=== PATIENT | female | born 1960 | race Two or more races ===

== ENCOUNTER → 2018-03-22 | Outpatient (CLI) | payer BC ==
[~2018-03-22] MED LIST: FLUT16SP2 NS
--- NOTE | 2018-03-22 14:34 | RAD ---
Ultrasound-guided left thyroid biopsy, 03/22/2018: History: Suspicious thyroid nodule An outside study demonstrated a dominant solid nodule in the left lobe of the thyroid gland. Under local anesthesia, aseptic conditions and sonographic guidance a 25-gauge needle was passed into this nodule via an anteromedial approach. 4 separate aspirates were obtained from the nodule in this manner and sent to pathology for evaluation. Hemostasis was then obtained. The patient tolerated the procedure well and left the department in good condition. The pathology results are pending.
--- NOTE | 2018-03-25 13:09 | PATHOLOGY ---
Note [facility] Accession Number: [id number] TESTS RESULT FLAG UNITS REF RANGE LAB Clinician Provided Cytology Information No. of containers..01 Other (Miscellaneous) Source: THYROID Clinician ICD10: E04.1 DIAGNOSIS: LT THYROID INCONCLUSIVE. B[place]ES[place] CATEGORY III. FOLLICULAR LESION OF UNDETERMINED SIGNIFICANCE. SPECIMEN CONSISTS OF ABUNDANT FOLLICULAR CELLS WITH HURTHLE CELL CHANGES AND WITH SCANT COLLOID. THE DIFFERENTIAL DIAGNOSIS INCLUDES CELLULAR HURTHLE SANDRO ADENOMATOID NODULE AND HURTHLE CELL FOLLICULAR NEOPLASM. THIS INTERPRETATION INCLUDES EVALUATION OF A CELL BLOCK. COMMENT; THIS CASE IS ALSO REVIEWED BY DR. GUILLERMO DAMON. Pathologist ICD10: R89.6 Signed out by: Anthony Cadet MD, Pathologist NPI- [id number] Performed by: Rylan Turner, Bus System Operator ([facility]) Gross description: 01 30ML, RED, CLOUDY /LCS FLAG LEGEND: L-Low Normal,H-High Normal,LL-Alert Low,HH-Alert High <-Panic Low,>-Panic High,A-Abnormal,AA-Critical Abnormal Performed at: [facility] [address] [place] [address] Nakul Merino MD, 02 AMADO [facility] [address] [id number] Ger Santos MD, Specimen Comment: A courtesy copy of this report has been sent to Specimen Comment: [phone]. Specimen Comment: Report sent to Specimen Comment: A duplicate report has been generated due to demographic updates. Performed at: [facility] [id number] [facility] [address], [place] [id number] MD Nakul Merino MD Phone: [phone]
== END | disposition home or self-care (01) ==
LOC: US 12:50
PROVIDERS: ATTEND Surgery
DX: E04.1 Nontoxic single thyroid nodule (principal)
CPT/HCPCS: 10022; 76942; 88173; 88305

== ENCOUNTER 2019-05-10 05:56 | Observation (INO) | payer BC ==
[~2019-05-10] VITALS: Ht 157.5 cm; Wt 76.0 kg
[2019-05-10] VITALS (7 sets, daily range): BP systolic 31–137; BP diastolic 64–77
[2019-05-10] MEDS ORDERED: LINZESS145 MCG PO ×2 (06:33→13:43)
[2019-05-10] MEDS ORDERED: PANT40TA77 PO (06:33)
[2019-05-10] MEDS ORDERED: LIDOCAINE 2% PF 5 ML VIAL. ONE (06:52)
[2019-05-10] MEDS ORDERED: DEXAMETHASONE SOD PHOS 20 MG/5 ML VIAL. ONE (06:52)
[2019-05-10] MEDS ORDERED: PROPOFOL 20 ML IV ONE (06:52)
[2019-05-10] MEDS ORDERED: ONDANSETRON PF 4 MG/2 ML VIAL. ONE (06:53)
[2019-05-10] MEDS ORDERED: SUCCINYLCHOLINE 200 MG/10 ML VIAL. ONE (06:54)
[2019-05-10] MEDS ORDERED: IV RINGERS,LACTATED 1000ML 1,000 ML IV SCH (07:00)
[2019-05-10] MEDS ORDERED: ONDANSETRON PF 4 MG/2 ML VIAL. IV PRN ×2 (07:00→10:15)
[2019-05-10] MEDS ORDERED: fentaNYL PF VIAL 100 MCG/2 ML VIAL IV PRN ×2 (07:00)
[2019-05-10] MEDS ORDERED: ceFAZolin 2GM PREMIX 2 GM/50 ML BAG IV ONE (07:00)
[2019-05-10] MEDS ORDERED: PROCHLORPERAZINE 10 MG/2 ML VIAL. IV PRN (07:00)
[2019-05-10] MEDS ORDERED: MIDAZOLAM HCL/PF 2 MG/2 ML VIAL. ONE (07:12)
[2019-05-10] MEDS ORDERED: fentaNYL PF VIAL 100 MCG/2 ML VIAL ONE (07:13)
[2019-05-10] MEDS ORDERED: REMIFENTANIL 1 MG VIAL. IV ONE (07:22)
[2019-05-10] MEDS ORDERED: PROPOFOL 100 ML IV ONE (07:34)
[2019-05-10] MEDS ORDERED: ePHEDrine PF IN SALINE 50 MG/10 ML SYRINGE. IV ONE ×2 (07:55→08:56)
[2019-05-10] MEDS ORDERED: SEVOFLURANE > 120 MINUTES. IH ONE (08:47)
[2019-05-10] MEDS ORDERED: IV 1/2 NORMAL SALINE 1,000 ML IV SCH (10:10)
[2019-05-10] MEDS ORDERED: IV NORMAL SALINE 1000ML BAG 1,000 ML IV SCH (10:10)
--- NOTE | 2019-05-10 10:10 | PDOC4 ---
Operative Note Operative Note Operative Note: Preoperative Diagnosis: Left thyroid nodule Postoperative Diagnosis: Same Procedure: Left hemithyroidectomy Surgeon: Micah [employer] Process Workers: Dr. Rowe Anesthesia: Gen. EBL: 25 mL Specimen: Left thyroid to pathology Drains: None Complications: None Indication: The patient is a 58 year old female who presented with a left thyroid nodule. Prior testing seemed to suggest a probable benign nodule. However with surveillance the nodule has increased in size. Based on this the patient strongly prefers a thyroidectomy versus continued surveillance and testing. The plan is for left hemithyroidectomy with the potential for a total pending pathology evaluation. The risks of surgery were discussed with the patient which include bleeding, infection, recurrent laryngeal nerve injury, hypoparathyroidism, pain, voice changes, anesthetic risk, potential need for additional surgery or procedure. She understands and would like to proceed. Description: The patient was taken to the operating room and placed supine on the operating table. Gen. anesthesia was performed. The Nims device was assembled. The anterior neck was prepped with ChloraPrep and draped in a standard surgical manner. The patient had a prior left neck scar from an anterior cervical procedure. We made an elliptical incision around the prior scar and extended it to the right side. Cautery dissection was carried down through the platysma. Subplatysmal flaps were developed superiorly and inferiorly. The strap muscle fascia was divided in the midline and we directed our attention to the left thyroid. In the midportion of the thyroid was the nodule which was readily palpated. We began with mobilization of the superior pole. The blood vessels were dissected free, ligated with 2-0 Vicryl, and divided. We then began mobilizing the lateral aspect of the thyroid, and the Harmonic scalpel assisted with this dissection. In a similar manner the inferior pole vessels were dissected free, ligated with 2-0 Vicryl and divided. The lobe was fairly small and seemed to be comprised of primarily the nodule. We were able to mobilize the lobe toward the midline and any smaller blood vessels were ligated with 3-0 Vicryl. With the Harmonic scalpel the isthmus was divided off the right lobe and the remaining tracheal attachments were mobilized The left thyroid lobe was then sent to pathology. Pathologic evaluation showed no clear evidence of papillary carcinoma. Hemostasis was good and no other gross abnormalities were seen. The strap muscle fascia was approximated with 3-0 Vicryl. The platysma was also closed with 3-0 Vicryl. Skin was approximated with 4-0 Monocryl. Steri-Strips and a sterile dressing were applied. The patient tolerated the procedure well and was sent to the recovery room in stable condition. At the end of the case all counts were correct. ZOE PONCE MD May 10, 2019 10:10
[2019-05-10] MEDS ORDERED: NALOXONE 0.4 MG/ML VIAL. IV PRN (10:15)
[2019-05-10] MEDS ORDERED: oxyCODONE/APAP 5/325 1 TAB TABLET PO PRN ×2 (10:15)
[2019-05-10] MEDS ORDERED: fentaNYL PF VIAL 100 MCG/2 ML VIAL IVP PRN (10:15)
[2019-05-10] MEDS ORDERED: 0.9 % SODIUM CHLORIDE 10 ML DISP.SYRIN. IV PRN (10:15)
[2019-05-10] MEDS ORDERED: PHENOL ORAL SPRAY 177ML BOTTLE. PO PRN (11:30)
[2019-05-10] MEDS ORDERED: FLU VAX QS 2019-20 (36MOS+)/PF 0.5 ML SYRINGE. VAX IM ONE (11:30)
[2019-05-10] MEDS ORDERED: [UNRECOGNIZED DRUG - REMARK] (13:42)
[2019-05-10] MEDS ORDERED: PANT20TA2 PO (13:43)
--- NOTE | 2019-05-10 14:26 | NUR ---
Patient accompanied by SCALE MANAGER walking for discharge home.
--- NOTE | 2019-05-12 09:07 | PATHOLOGY ---
[facility] Accession Number: [id number] . 01 Material submitted: . thyroid gland - LEFT THYROID,FS. Modifiers: left . 02 Frozen section diagnosis: . INTRAOPERATIVE CONSULTATION WITH FROZEN SECTION: FSA1. Thyroid tissue, left hemithyroidectomy: - Thinly encapsulated Hurthle cell lesion, favor adenoma - definitive diagnosis pending examination of entire capsule. . The results are reported to Dr. Obrien in the operating room. (JPM:areli 05/10/2019) . INTRAOPERATIVE CONSULTATION WITH FROZEN SECTION GROSS DESCRIPTION: The specimen is received fresh for intraoperative consultation and is designated "left thyroid". This consists of a segment of reddish-purple thyroid tissue which weighs 8 grams and measures 3.3 x 1.6 x 1.7 cm in greatest dimension. The capsular surface generally appears intact and shows focal black cautery change. The specimen appears to be occupied predominantly by rubbery nodule. The capsular surface is inked. The specimen is bisected along the midline longitudinal axis. Sectioning reveals a well-demarcated thinly encapsulated pale brown nodule measuring up to 2.2 cm in greatest dimension. The nodule shows a focal eccentric area of hemorrhage. The remainder of the thyroid is composed of reddish-brown meaty thyroid tissue. Police Superintendent portions of the nodule is submitted for intraoperative consultation with frozen section as FSA1. The tissue remaining from frozen section is submitted for permanent sections as A1. The remainder of the specimen is submitted as A2-A6. (JPM:[facility] 05/10/2019) . . Intraoperative consultation and Frozen section performed at [facility], [address] [place] [id number]. [place] . 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 - No parathyroid glands identified. . (JPM:mml; 05/11/2019) QLM 05/11/2019 1618 Local . 02 Comment: There is no evidence of malignancy. . (JPM:mml; 05/11/2019) . 02 Electronically signed: . Bipin Barry MD, Pathologist NPI- [id number] . 01 Gross description: . PLEASE SEE FROZEN SECTION GROSS DESCRIPTION /QLM 05/11/2019 1613 Local . 02 Pathologist provided ICD-10: D34 . 02 CPT . 960999, [id number] Specimen Comment: A courtesy copy of this report has been sent to [phone], [phone] Specimen Comment: [phone] Specimen Comment: Report sent to / DR ANNA Performed at: 01 [facility] [address] [facility] [address], [place] [id number] MD Nakul Merino MD Phone: [phone] Performed at: 02 [facility] [address] [place], [place] [id number] MD Bipin Barry MD Phone: [phone]
== END 2019-05-10 14:30 | disposition home or self-care (01) ==
LOC: SURG 05:56 → 4 NORTH 09:36
PROVIDERS: ADMIT Surgery; ATTEND Surgery
DX: E04.1 Nontoxic single thyroid nodule (principal); Z90.49 Acquired absence of other specified parts of digestive tract; Z98.890 Other specified postprocedural states; Z23 Encounter for immunization
CPT/HCPCS: 60220; 88307; 88331; 90471; 90686; A7015; G0378; G0379; J0171; J0330; J0696; J1100; J2001; J2250; J2405; J2704; J3010; J7120